=== PATIENT | female | born 1960 | race African-American/Black ===

== ENCOUNTER 2016-12-13 13:36 | Emergency (ER) | payer OTHER ==
[~2016-12-13] VITALS: Ht 154.9 cm; Wt 57.6 kg
[~2016-12-13 13:36] MED LIST: ASPI-482 PO
[2016-12-13 14:48] LABS: BASO # 0.1 x10^3/uL (0.0-0.2); BASO % 1 % (0-3); EOS % 1 % (0-3); HEMATOCRIT 42.1 % (36.0-47.0); HEMOGLOBIN 13.9 g/dL (12.0-15.5); LYMPH # 2.2 x10^3/uL (1.0-4.8); LYMPH % 30 % (24-48); MEAN CORPUSCULAR HEMOGLOBIN 28 pg (25-35); MEAN CORPUSCULAR HGB CONC 33 g/dL (31-37); MEAN CORPUSCULAR VOLUME 84 fL (79-100); MONO % 12 % (0-9); NEUT % 56 % (31-73); PLATELET COUNT 266 x10^3/uL (140-400); RED BLOOD COUNT 4.99 x10^6/uL (3.50-5.40); RED CELL DISTRIBUTION WIDTH 13.9 % (11.5-14.5); WHITE BLOOD COUNT 7.4 x10^3/uL (4.0-11.0)
--- NOTE | 2016-12-13 14:51 | PHYS DOC ---
Past Medical History Past Medical History: No Pertinent History Past Surgical History: Hysterectomy, Tonsillectomy, Other Additional Past Surgical Histo: colon polic removal Alcohol Use: Heavy Drug Use: Marijuana Social History Narrative: occassional Adult General Chief Complaint Chief Complaint: R facial numbness HPI HPI Patient is a 56 year old female who presents with symptoms right-sided facial numbness, right caodaism pressure and now right eye blurry vision. He states his symptoms have been intermittent over the last 1-2 weeks, no previous similar symptoms. She denies any history of stroke or known risk factors for stroke. She has been admitted and diagnosed with a TIA in the past. She intermittently takes aspirin daily. She denies other focal weakness. When asked specifically, she thinks that her speech does sound different than normal. She states since going to the CT scanner she feels like she is dizzy, described as a "seesaw" symptoms. No nausea or vomiting, no reported headaches, no falls or trauma. She does not follow with a primary care physician. No recent infection. Review of Systems Review of Systems Constitutional: Denies fever or chills [] Eyes: Denies change in visual acuity, redness, or eye pain [] HENT: Denies nasal congestion or sore throat [] Respiratory: Denies cough or shortness of breath [] Cardiovascular: Denies Chest pain GI: Denies abdominal pain, nausea, vomiting, bloody stools or diarrhea [] : Denies dysuria or hematuria [] Musculoskeletal: Denies back pain or joint pain [] Integument: Denies rash or skin lesions [] Neurologic: Per history of present illness Current Medications Current Medications Current Medications Medications (Trade) Dose Ordered Sig/Formerly [facility] Start Time Stop Time Status Last Admin Dose Admin Aspirin (Ernesto Aspirin) 325 mg 1X ONCE 12/13/16 15:15 12/13/16 15:16 Allergies Allergies Allergies Coded Allergies Type Severity Reaction Last Updated Verified No Known Drug Allergies 08/12/15 No Physical Exam Physical Exam Constitutional: Well developed, well nourished, no acute distress, non-toxic appearance. Smiling HENT: Normocephalic, atraumatic, bilateral external ears normal, oropharynx moist, no oral exudates, nose normal. [] Eyes: PERRLA, EOMI, conjunctiva normal, no discharge. [] Neck: Normal range of motion, no tenderness, supple, no stridor. [] Cardiovascular:Heart rate regular with regular rhythm, no murmur [] Lungs & Thorax: Bilateral breath sounds clear to auscultation, no wheeze or crackles Abdomen: Bowel sounds normal, soft, no tenderness, no masses, no pulsatile masses. [] Skin: Warm, dry, no erythema, no rash. [] Back: No tenderness, no CVA tenderness. [] Extremities: No tenderness, no cyanosis, no clubbing, ROM intact, no edema. [] Neurologic: Alert and oriented X 3, normal motor function, normal sensory function, no focal deficits noted on the normal finger to nose, NIH is 0, normal vision on exam, normal Romberg's, cranial nerves II through XII intact, normal gait Psychologic: Affect normal, judgement normal, mood normal. [] Current Patient Data Vital Signs Vital Signs Date Time Temp Pulse Resp B/P (MAP) Pulse Ox O2 Delivery O2 Flow Rate FiO2 12/13/16 13:46 98.6 79 18 139/80 (99) 98 Room Air 98.6 Lab Values Laboratory Tests Test 12/13/16 14:30 White Blood Count 7.4 x10^3/uL (4.0-11.0) Red Blood Count 4.99 x10^6/uL (3.50-5.40) Hemoglobin 13.9 g/dL (12.0-15.5) Hematocrit 42.1 % (36.0-47.0) Mean Corpuscular Volume 84 fL (79-100) Mean Corpuscular Hemoglobin 28 pg (25-35) Mean Corpuscular Hemoglobin Concent 33 g/dL (31-37) Red Cell Distribution Width 13.9 % (11.5-14.5) Platelet Count 266 x10^3/uL (140-400) Neutrophils (%) (Auto) 56 % (31-73) Lymphocytes (%) (Auto) 30 % (24-48) Monocytes (%) (Auto) 12 % (0-9) H Eosinophils (%) (Auto) 1 % (0-3) Basophils (%) (Auto) 1 % (0-3) Neutrophils # (Auto) 4.1 x10^3uL (1.8-7.7) Lymphocytes # (Auto) 2.2 x10^3/uL (1.0-4.8) Monocytes # (Auto) 0.9 x10^3/uL (0.0-1.1) Eosinophils # (Auto) 0.1 x10^3/uL (0.0-0.7) Basophils # (Auto) 0.1 x10^3/uL (0.0-0.2) Laboratory Tests 12/13/16 14:30 EKG EKG [] 73 bpm, sinus, normal axis, normal intervals, no ST elevation or depression, nonischemic T waves, interpreted by nc Radiology/Procedures Radiology/Procedures [] Course & Med Decision Making Course & Med Decision Making Pertinent Labs and Imaging studies reviewed. (See chart for details) CT the head was ordered. Exam is reassuring as there is no subjective findings to support the symptoms she is having. I spoke with Dr. Serrato, he recommends MRI without contrast of brain if CT negative to rule-out CVA and pt can follow-up on outpatient basis. At 1500, Care transferred to Dr. Talbot pending MRI results. Dragon Disclaimer Dragon Disclaimer This electronic medical record was generated, in whole or in part, using a voice recognition dictation system. Departure Departure Impression: Primary Impression: Right facial numbness Referrals: NO PCP (PCP) GURPREET HANCOCK MD Dec 13, 2016 14:51
--- NOTE | 2016-12-13 14:57 | RAD ---
Indication headache. Facial numbness. Noncontrast images of the head were obtained. Note is made of a previous examination 08/12/2015. The calvarium appears unremarkable. The visualized paranasal sinuses also appear normal. No subdural or epidural hematoma is seen. The ventricles and sulci are normal. No mass or midline shift is seen. There is no evidence of hemorrhage. There has not been a significant change compared to the previous exam. IMPRESSION: No acute intracranial finding seen PQRS Compliance Statement: One or more of the following individualized dose reduction techniques were utilized for this examination: 1. Automated exposure control 2. Adjustment of the mA and/or kV according to patient size 3. Use of iterative reconstruction technique
--- NOTE | 2016-12-13 15:12 | EKG ---
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
[2016-12-13 15:14] LABS: CALCIUM 9.2 mg/dL (8.5-10.1); CREATININE 0.8 mg/dL (0.6-1.0); GFR 90.1; POTASSIUM 3.8 mmol/L (3.5-5.1)
[2016-12-13] MEDS ORDERED: ASPIRIN 325 MG TABLET PO ONE (15:15)
[2016-12-13 15:25] LABS: ALBUMIN 3.6 g/dL (3.4-5.0); ALBUMIN/GLOBULIN RATIO 0.9 (1.0-1.7); TOTAL BILIRUBIN 0.3 mg/dL (0.2-1.0); TOTAL PROTEIN 7.6 g/dL (6.4-8.2)
--- NOTE | 2016-12-13 16:52 | RAD ---
MR BRAIN HISTORY: ER RM 10...PRIOR STUDY SENT 08-12-15...PT C/O RIGHT SIDED FACIAL PAIN AND NUMBNESS WITH HEADACHE COMPARISON: MRI brain from 08/12/2015 TECHNIQUE: Axial diffusion weighted imaging was obtained. Additional sagittal T1, axial T1, axial FLAIR, and axial T2 weighted imaging of the brain was also performed. FINDINGS: Again noted is a cavernous hemangioma within the anterior left temporal lobe. No signs of acute hemorrhage. No restricted diffusion to indicate acute infarct. No extra-axial fluid collections. No midline shift or mass effect. Ventricular size is appropriate. Midline structures have a normal anatomic configuration. Basal cisterns are patent. Arterial flow voids at the skull base and major dural venous sinuses are maintained. Globes and orbits are unremarkable. Paranasal sinuses and mastoid air cells are clear. IMPRESSION: No acute or recent infarct. No acute intracranial abnormality. Redemonstration of a cavernous angioma within the anterior left temporal lobe. This is unchanged when compared to the previous exam from 08/12/2015. Electronically signed by: Mu Rolon MD (12/13/2016 4:49 PM)
[2016-12-13 17:22] VITALS: BP 134/63
== END 2016-12-13 17:35 | disposition home or self-care (01) ==
LOC: ER 13:36
DX: R20.0 Anesthesia of skin (principal); F12.10 Cannabis abuse, uncomplicated; F10.10 Alcohol abuse, uncomplicated; R42 Dizziness and giddiness; Z86.73 Personal history of transient ischemic attack (TIA), and cerebral infarction without residual deficits; Z90.710 Acquired absence of both cervix and uterus
CPT/HCPCS: 36415; 70450; 70551; 80053; 85027; 93005; 99285-25